=== PATIENT | female | born 1970 | race Caucasian/White ===

== ENCOUNTER 2018-02-17 05:59 | Emergency (ER) | payer OTHER ==
[2018-02-17] MEDS ORDERED: LORazepam 2 MG/ML VIAL IVP ONE (06:06)
[2018-02-17] MEDS ORDERED: methylPREDNISolone SOD SUCC 125 MG/2 ML VIAL IVP ONE (06:12)
--- NOTE | 2018-02-17 06:12 | ED Physician Documentation ---
General Adult - HISTORIAN Historian: patient - HPI Stated Complaint: SOB Chief Complaint: General Adult Additional Information: Restless all night and thought it was because she couldn't get head and neck in appropriate, comfortable position. But feels like she can't breathe. Can't get air in. Had bone grafts C-spine at [facility] on Tuesday, Feb 13, per Dr. Miguel. Has not contacted surgeon about her symptoms tonight. Not on abx. Last pain pill was at 0400 today, oxycodone 5/325. Comes to ER POV with daughter and . Walks from to [facility]. Speaks in full sentences. Pulse ox 97% on ambient air. Rapid breathing. C/O dry mouth. No other modifying factors or associated events. - ROS CONST: denies: fever - PAST HX Past History: hypertension, other (GERD, chronic pain, HLD) - SOCIAL HX Smoking History: quit less than 1 year (Feb 13, 2018), cigarettes - FAMILY HX Family History: Yes (F with heart disease in mid 50's; malignant melanoma. Daughter w/ mono) - REVIEWED ASSESSMENTS Nursing Assessment Reviewed: Yes Vitals Reviewed: Yes <AJIT SKINNER - Last Filed: 02/17/18 06:24> - FAMILY HX Family History: Yes (Father with heart disease in mid 50's; malignant melanoma. Daughter w/ mono) - VITAL SIGNS Vital Signs: Vital Signs Temp Pulse Resp BP Pulse Ox 97.4 F L 100 H 20 141/102 96 02/17/18 06:00 02/17/18 08:00 02/17/18 06:00 02/17/18 06:00 02/17/18 06:00 <Jaskaran Silverman - Last Filed: 02/17/18 08:32> - PAST HX Allergies/Adverse Reactions: Allergies Allergy/AdvReac Type Severity Reaction Status Date / Time azithromycin Allergy Unknown Verified 02/17/18 06:38 [From Zithromax Z-Patricio] Home Medications: Ambulatory Orders Medication Instructions Recorded Budesonide [Budesonide EC] 3 mg PO AM 02/17/18 Bupropion HCl [Bupropion HCl Sr] 150 mg PO BID 02/17/18 Calcium Carbonate/Vitamin D3 1 tab PO DAILY 02/17/18 [Calcium 600-Vit D3 200 Tablet] Cetirizine HCl [Zyrtec] 10 mg PO DAILY 02/17/18 Chlorthalidone 25 mg PO DAILY 02/17/18 Diazepam 5 mg PO PRN PRN 02/17/18 Dicyclomine HCl 10 mg PO QID 02/17/18 Ergocalciferol (Vitamin D2) 50,000 unit PO WEEK 02/17/18 [Vitamin D2] Fluticasone Propionate [Flovent 50 mcg IH BID 02/17/18 Diskus] Gabapentin [Neurontin] 300 mg PO TID 02/17/18 Lidocaine 1 each TP DAILY PRN 02/17/18 Meloxicam 15 mg PO DAILY 02/17/18 Pantoprazole Sodium 20 mg PO DAILY 02/17/18 Pnv No.95/Ferrous Fum/Folic AC 1 each PO DAILY 02/17/18 [ Vitamin Tablet] Ranitidine HCl [Zantac] 150 mg PO BID 02/17/18 Sennosides/Docusate Sodium 2 tab PO HS 02/17/18 [Senna-Docusate Sodium Tablet] Simvastatin 20 mg PO HS 02/17/18 oxyCODONE HCL/ACETAMINOPHEN 1 - 2 tab PO Q4 PRN 02/17/18 [Percocet 5-325 mg Tablet] traZODone HCL [Desyrel] 50 mg PO HS PRN 02/17/18 Progress - Progress Progress: Report Submission Date: Feb 17, 2018 6:40:05 AM CDT Patient Study Name: JOHN MALIK Date: Feb 17, 2018 6:09:58 AM CDT Modality Type: DX Gender: F Description: CHEST : 66 Institution: [facility] Physician: AJIT SKINNER - KAL 2 views of the chest History: SUDDEN ONSET THIS MORNING DIFFICULTY BREATHING. FEELS LIKE THROAT IS SWELLING. RECENT CSPINE BONE SPUR REPAIR 02-13-18. QUIT SMOKING 4 MONTHS AGO No comparison studies The heart is normal in size. Scarring and patchy opacity in the right infrahilar region. No focal consolidation, pleural effusion or pneumothorax. Aortic calcification is present. Cervical fusion hardware is seen. No acute osseous pathology Impression: 1. Scarring with patchy opacity and coarsening of the interstitium in the right middle lobe, right infrahilar region suggestive of infiltrate/atelectasis. This needs followup to resolution and to exclude underlying malignancy. Consider CT chest evaluation. 2. No pleural effusion or pneumothorax. Electronically signed on Feb 17, 2018 6:40:05 AM CDT by: Maria Del Carmen Mora 0700, much more comfortable. sleeping. Care to Dr. Silverman. <AJIT SKINNER - Last Filed: 02/17/18 06:24> - Progress Progress: Ativan 1 mg IV Solu-medrol 125 mg IV little improvement after Ativan, pt tachycardic with TX=008 Pt now complains that when she takes a drink, she feels as if it will go into her lungs. She spits the liquid out. D/w Dr. Antoine. Transfer to [facility] ER. - EKG/XRAY/CT EKG: rhythm (sinus tachycardia, DS=169; non-specific ST/T wave changes; normal axis.) <Jaskaran Silverman - Last Filed: 02/17/18 08:32> ED Results Lab/Radiology - Orders Orders: ED Orders Category Date Time Status Continuous EKG monitoring Q1H Care 02/17/18 06:[address] IV Lock 1T Care 02/17/18 06:06 Ordered CHEST 2VIEW [RAD] Stat Exams 02/17/18 Ordered CBC/PLATELET/DIFF Routine Lab 02/17/18 Ordered CMP Routine Lab 02/17/18 Ordered URINALYSIS Routine Lab 02/17/18 Ordered LORazepam [Ativan] Med 02/17/18 06:06 Once 1 mg IVP NOW ONE EKG WITH COMPARISON Stat Ther 02/17/18 Ordered <AJIT SKINNER - Last Filed: 02/17/18 06:24> - Lab Results Lab Results: Lab Results 02/17/18 06:40 Sodium 137 mmol/L mmol/L (136-145) Potassium 3.4 mmol/L L mmol/L (3.5-5.1) Chloride 97 mmol/L L mmol/L (98-107) Carbon Dioxide 32 mmol/L H mmol/L (22-30) BUN 10 mg/dL mg/dL (7-17) Creatinine 0.60 mg/dL mg/dL (0.52-1.04) Estimated Creat Clear 191 Est GFR ( Amer) > 60 (60 - ) Est GFR (Non-Af Amer) > 60 (60 - ) Glucose 125 mg/dL H mg/dL (74-106) Calcium 8.8 mg/dL mg/dL (8.4-10.2) Total Bilirubin 0.4 mg/dL mg/dL (0.2-1.3) AST 44 U/L U/L (15-46) ALT 49 U/L U/L (13-69) Alkaline Phosphatase 141 U/L H U/L (38-126) Total Protein 7.1 g/dL g/dL (6.3-8.2) Albumin 3.8 g/dL g/dL (3.5-5.0) - Orders Orders: ED Orders Category Date Time Status Continuous EKG monitoring Q1H Care 02/17/18 06:[address] IV Lock 1T Care 02/17/18 06:06 Active CHEST 2VIEW [RAD] Stat Exams 02/17/18 Completed CBC REF Routine Lab 02/17/18 06:40 Received CMP Routine Lab 02/17/18 06:40 Completed URINALYSIS Routine Lab 02/17/18 Ordered LORazepam [Ativan] Med 02/17/18 06:06 Discontinued 1 mg IVP NOW ONE methylPREDNISolone SOD SUCC [Solu-MEDROL] Med 02/17/18 06:12 Discontinued 125 mg IVP NOW ONE EKG WITH COMPARISON Stat Ther 02/17/18 Ordered <Jaskaran Silverman - Last Filed: 02/17/18 08:32> General Adult Physical Exam - PHYSICAL EXAM GENERAL APPEARANCE: moderate distress (anxious) EENT: eye inspection normal, ENT inspection normal, pharynx normal NECK: supple, other (healtin surgical incisions x2, L ant neck. Slight swelling, not tense. ) RESPIRATORY: no resp distress, breath sounds normal CVS: reg rate & rhythm (tachycardia to 127), heart sounds normal, no murmur ABDOMEN: soft, normal bowel sounds, other (dry dressing over LLQ surgical inciasion over donot site. No unexpected erythema or swelling) BACK: normal inspection, no CVA tenderness, other (no vertebral tenderness) EXTREMITIES: non-tender, normal range of motion (gait and stance), no evidence of injury, no edema NEURO: CN's nml as tested, motor nml, sensation nml <AJIT SKINNER - Last Filed: 02/17/18 06:24> Discharge <AJIT SKINNER - Last Filed: 02/17/18 06:24> Decision to Admit: NO Decision Time: 08:31 <Jaskaran Silverman - Last Filed: 02/17/18 08:32> Clincal Impression: s/p cervical spine fusion, c/o difficulty breathing, c/o difficulty swallowing liquids Referrals: Regina Grimm MD [STAFF PHYSICIAN] - Condition: Stable Disposition: XFER [facility]
--- NOTE | 2018-02-17 06:53 | Diagnostic Imaging Report ---
AJIT SKINNER [facility] [id number] [facility] [address] [place], [place]. [address] Report Submission Date: Feb 17, 2018 6:40:05 AM CDT Patient Study Name: JOHN MALIK Date: Feb 17, 2018 6:09:58 AM CDT Modality Type: DX Gender: F Description: CHEST : 66 Institution: [facility] Physician: AJIT SKINNER 2 views of the chest History: SUDDEN ONSET THIS MORNING DIFFICULTY BREATHING. FEELS LIKE THROAT IS SWELLING. RECENT CSPINE BONE SPUR REPAIR 02-13-18. QUIT SMOKING 4 MONTHS AGO No comparison studies The heart is normal in size. Scarring and patchy opacity in the right infrahilar region. No focal consolidation, pleural effusion or pneumothorax. Aortic calcification is present. Cervical fusion hardware is seen. No acute osseous pathology Impression: 1. Scarring with patchy opacity and coarsening of the interstitium in the right middle lobe, right infrahilar region suggestive of infiltrate/atelectasis. This needs followup to resolution and to exclude underlying malignancy. Consider CT chest evaluation. 2. No pleural effusion or pneumothorax. Electronically signed on Feb 17, 2018 6:40:05 AM CDT by: Maria Del Carmen DODSON
[2018-02-17 07:12] LABS: eGFR (Non-African) > 60
[2018-02-17 09:03] VITALS: BP 122/67
[2018-02-17 09:11] LABS: BASO % 0.5 % (0.0-1.5); EOS % 3.4 % (0.0-6.8); LYMPH ABS # 1.22 thou/uL (0.60-4.00); MCH. 31.1 pg (28.0-34.0); MCV 92.5 fL (80.0-100.0); MONOCYTE % 7.4 % (0.0-11.0); MONOCYTE ABS # 0.56 thou/uL (0.00-0.90); PLATELET COUNT 298 thou/uL (130-400)
== END 2018-02-17 08:40 | disposition short-term general hospital (02) ==
LOC: ED 05:59
DX: R13.10 Dysphagia, unspecified (principal); R06.9 Unspecified abnormalities of breathing; Z98.1 Arthrodesis status
CPT/HCPCS: 71046; 80053; 85025; 93005; J2060; J2930; 96374; 96375; S1016